=== PATIENT | male | born 1990 | race Two or more races ===

== ENCOUNTER 2019-06-12 10:48 | Outpatient (CLI) | payer OTHER | END 2019-06-12 10:52 | disposition home or self-care (01) | LOC: LAB 10:48 | DX: J11.1 Influenza due to unidentified influenza virus with other respiratory manifestations (principal) ==

== ENCOUNTER 2024-09-03 03:43 | Emergency (ER) | payer OTHER ==
[~2024-09-03] VITALS: Ht 172.7 cm; Wt 90.7 kg
[2024-09-03] MEDS ORDERED: HYOSCYAMINE SULFATE 0.125 MG TAB.SUBL ONE (04:36)
[2024-09-03] MEDS ORDERED: KETOROLAC TROMETHAMINE 30 MG VIAL ONE (04:36)
[2024-09-03] MEDS ORDERED: KETOROLAC TROMETHAMINE 30 MG VIAL IV STA (04:37)
[2024-09-03] MEDS ORDERED: 0.9 % SODIUM CHLORIDE 1,000 ML IV STA (04:37)
[2024-09-03] MEDS ORDERED: HYOSCYAMINE SULFATE 0.125 MG TAB.SUBL SL ONE (04:45)
[2024-09-03 05:03] LABS: BASO % 0.4 % (0.1-1.2); EOS # 0.12 (0.04-0.54); HEMATOCRIT 39.7 % (40.1-51.0); HEMOGLOBIN 14.2 g/dL (13.7-17.5); LYMPH # 1.56 (1.18-3.74); LYMPH % 13.6 % (19.3-53.1); MEAN CORPUSCULAR HEMOGLOBIN 30.9 pg (25.6-32.2); MONO # 1.02 (0.24-0.82); MONO % 8.9 % (4.7-12.5); NEUT # 8.62 (1.56-6.13); NEUT % 75.6 % (34.0-71.1); PLATELET COUNT 291 K/uL (163-369); RED CELL DISTRIBUTION WIDTH 11.9 % (11.6-14.4)
[2024-09-03 05:27] LABS: ALBUMIN 3.8 gm/dL (3.4-5.0); BILIRUBIN TOTAL 0.67 mg/dL (0.3-1.2); CALCIUM 8.8 mg/dL (8.5-10.1); CREATININE SERUM 1.09 mg/dL (0.70-1.30); GFR 77.91; GLOBULINA 3.3 G/DL (2.4-3.5); PARTIAL THROMBOPLASTIN TIME 26.5 SECONDS (22.0-34.0); POTASSIUM 3.34 mEq/L (3.5-5.1); PROTHROMBIN TIME 10.9 SECONDS (9.0-11.5); TOTAL PROTEIN 7.1 gm/dL (6.4-8.2)
[2024-09-03] MEDS ORDERED: MORPHINE SULFATE 4 MG/ML VIAL IV STA (06:21)
== END 2024-09-03 09:53 | disposition home or self-care (01) ==
LOC: ER 03:43
DX: R10.9 Unspecified abdominal pain (principal); M94.0 Chondrocostal junction syndrome [Tietze]